=== PATIENT | female | born 1995 | race Hispanic/Latino ===

== ENCOUNTER 2018-07-27 07:30 | Inpatient (IN) | payer OTHER ==
[2018-07-27 08:11] VITALS: BMI 31.4
[2018-07-27] MEDS ORDERED: Ondansetron PF 4 MG/2 ML Vial IVP PRN (09:51)
[2018-07-27] MEDS ORDERED: Ibuprofen 800 MG TAB PO PRN (09:51)
[2018-07-27] MEDS ORDERED: Methylergonovine 0.2 MG/ML VIAL IM PRN (09:51)
[2018-07-27] MEDS ORDERED: Lidocaine 1% (PF) 30 ML VIAL SC PRN (09:51)
[2018-07-27] MEDS ORDERED: Promethazine HCl 25 MG/ML VIAL IM PRN (09:51)
[2018-07-27] MEDS ORDERED: Misoprostol 200 MCG TAB PR PRN (09:51)
[2018-07-27] MEDS ORDERED: HYDROcodone/Acetaminophen 5/325 mg Tablet PO PRN ×2 (09:51→18:55)
[2018-07-27] MEDS ORDERED: Carboprost 250 MCG/ML AMP IM PRN (09:51)
[2018-07-27 11:20] LABS: Hemoglobin 12.7 g/dL (12.0-16.0); Mean Corpuscular HGB CONC 31.2 g/dL (32.0-36.0); Mean Corpuscular Hemoglobin 28.3 pg (27.0-31.0); Mean Corpuscular Volume 90.4 fL (78.0-98.0); Mean Platelet Volume 7.4 fL (7.4-10.4); Platelet Count 318 thou/uL (130-400); RBC Distribution Width 12.6 % (11.5-14.5)
[2018-07-27 11:57] LABS: HBSAg Index 0.42 S/CO (0-0.99); Hep B Surf Ag Non-Reactive S/CO (NonReactive); Syphilis Antibody Nonreactive (Nonreactive); Syphilis Antibody Index 0.03 S/CO (<1.00 Non-Reactive)
--- NOTE | 2018-07-27 12:32 | PDOC.EVN ---
Event Note - Event Note Event Note: AROM with clear fluid. SVE 5/80/-1. Category I FHT. CTX every 2-3 minutes.
[2018-07-27] MEDS: NS / Oxytocin 40 units/1000ml 1,000 ML IV PRN ×2 (15:20→17:19)
[2018-07-27] MEDS ORDERED: Bisacodyl 10 MG SUPP PR PRN (18:55)
[2018-07-27] MEDS ORDERED: NS / Oxytocin 40 units/1000ml 1,000 ML IV SCH (18:55)
[2018-07-27] MEDS ORDERED: Milk Of Magnesia 30 ML UDCUP PO PRN (18:55)
[2018-07-27] MEDS ORDERED: Adacel (T-DAP) 0.5 ML SYRINGE IM ONE (18:55)
--- NOTE | 2018-07-27 19:17 | OP ---
DATE OF PROCEDURE: 07/27/2018 DATE OF DELIVERY: 07/27/2018. PREOPERATIVE DIAGNOSIS: Term intrauterine . POSTOPERATIVE DIAGNOSIS: Term intrauterine . PROCEDURE PERFORMED: Normal spontaneous vaginal delivery. ANESTHESIA: None. QUANTITATIVE BLOOD LOSS: 45 mL. BRIEF DELIVERY SUMMARY: This is a 23-year-old G3, now P3, who presented in active labor. She progressed well to complete and pushing. well-being throughout the labor course was reassuring. She delivered a live male infant head away. Mouth and nares were bulb suctioned at the perineum. There was no nuchal cord. Shoulders and body easily followed and the infant was placed on mother's abdomen. The umbilical cord was doubly clamped and cut and cord blood was collected and sent for analysis. Placenta delivered spontaneously and intact with a 3-vessel umbilical cord. Uterine fundus following evacuation of the placenta was firm. Cervix, vagina, and perineum were inspected for lacerations and there were none to be found. Mom and baby were left with the nurse in excellent condition attempting to breastfeed. Job ID: [id number]
[2018-07-28] MEDS: Ibuprofen 800 MG TAB PO SCH ×3 (00:20→13:35)
[2018-07-28] MEDS: Docusate Calcium (SURFAK) 240 MG CAP PO SCH ×2 (00:21→10:36)
--- NOTE | 2018-07-28 08:44 | PDOC.PP ---
Post Progress Note Post Day #: 1 Subjective: Doing well. well. No c/o. PO intake tolerated: yes Flatus: yes Ambulation: yes Vital Signs (12 hours) Temp Pulse Resp BP 07/28/18 04:15 98.0 F 77 18 109/60 07/28/18 00:13 98.4 F 73 18 109/57 L Weight Weight 166 lb - Physical Examination General: NAD Cardiovascular: no m/r/g, RRR Respiratory: clear to auscultation bilaterally, non-labored breathing Abdominal: + bowel sounds, lochia, no distention, appropriately TTP Result Diagrams: 07/27/18 11:06 Additional Labs: Post Labs Blood Type O POSITIVE 07/27/18 11:06 Hep Bs Antigen Non-Reactive S/CO (NonReactive) 07/27/18 11:06 (1) Vaginal delivery Code(s): O80 - ENCOUNTER FOR FULL-TERM UNCOMPLICATED DELIVERY Status: Acute - Assessment/Plan Routine PP care D/C this PM F/U in 6 weeks
[2018-07-28] MEDS: Ferrous Sulfate 325 MG TAB PO SCH ×2 (09:26→15:24)
[2018-07-28 11:31] VITALS: TEMP 97.9
[2018-07-28 12:09] VITALS: BP 103/55
== END 2018-07-28 18:04 | disposition home or self-care (01) | DRG 807 ==
LOC: L&D/OP 07:30 → L&D 08:27 → 3SW 18:51
PROVIDERS: ADMIT Family Medicine; ATTEND Family Medicine
PROC: 10E0XZZ Delivery of Products of Conception, External Approach (ICD-10-PCS; principal; 2018-07-27)
PROC: 10907ZC Drainage of Amniotic Fluid, Therapeutic from Products of Conception, Via Natural or Artificial Opening (ICD-10-PCS; 2018-07-27)
DX: O80 Encounter for full-term uncomplicated delivery (principal); Z37.0 Single live birth; Z3A.38 38 weeks gestation of pregnancy
CPT/HCPCS: 36415; 85027; 86780; 86850; 86900; 86901; 87340; 99285

== ENCOUNTER 2019-08-20 10:21 | Day surgery (SDC) | payer OTHER ==
[2019-08-20 11:06] VITALS: TEMP 98.6; BMI 28.9
[2019-08-20] MEDS ORDERED: hydrALAZINE 20 MG/ML VIAL SLOW IVP PRN (11:55)
--- NOTE | 2019-08-21 05:24 | PRG ---
DATE OF SERVICE: 08/20/2019 PRIMARY OB: Dr. David Croft. CHIEF COMPLAINT: Decreased movement. HISTORY OF PRESENT ILLNESS: The patient is a 24-year-old G4, P3 female with an intrauterine at 21 weeks gestation, presenting with decreased movement times a day. The patient's baby was recently diagnosed with an unknown incompletely described anomaly of the brain on . The patient came out of concern. The patient denies any other known complications. Nursing staff at the time of presentation was unable to obtain heart tones and asked that I come in with ultrasound for confirmation of viable fetus. At time of my evaluation at bedside with a bedside ultrasound, IUFD was confirmed. Understandably at this time, the family became overwhelmed with grief, and we allowed the patient and her time alone. Shortly thereafter, a short discussion was had about the options including induction of labor today or discharge home and follow up with her primary provider, this is the option she preferred. PHYSICAL EXAMINATION: VITAL SIGNS: Today, blood pressure of 121/81, heart rate of 96, respiratory rate of 18, and temperature of 98.6. GENERAL: She appears to be in no acute distress. She is appropriately grieving. She is otherwise alert, oriented, cooperative, and pleasant to interact with. HEAD: Normocephalic and atraumatic. RESPIRATIONS: The patient is breathing rhythmically clear and without any audible sounds. The patient was discharged home with a diagnosis of IUFD. Her presentation and diagnosis have been relayed to her primary OB, Dr. David Croft, who will be contacting Ms. Little by phone. Job ID: [id number]
[2019-08-21 17:08] LABS: SARS-CoV-2 MS2 Positive; SARS-CoV-2 N Gene Negative; SARS-CoV-2 S Gene Negative; SARS-CoV-2 orf1ab Negative
== END 2019-08-20 12:00 | disposition home health service (06) ==
LOC: L&D/OP 10:21
PROVIDERS: ATTEND Obstetrics & Gynecology
DX: O36.4XX0 Maternal care for intrauterine death, not applicable or unspecified (principal); Z3A.21 21 weeks gestation of pregnancy
CPT/HCPCS: 87635; U0003

== ENCOUNTER 2019-08-21 08:36 | Inpatient (IN) | payer OTHER ==
[2019-08-21] MEDS ORDERED: Ondansetron PF 4 MG/2 ML Vial IVP PRN ×2 (09:01→21:55)
[2019-08-21] MEDS ORDERED: Acetaminophen 500 MG TAB PO PRN (09:01)
[2019-08-21] MEDS ORDERED: hydrALAZINE 20 MG/ML VIAL SLOW IVP PRN ×2 (09:01→21:55)
[2019-08-21] MEDS ORDERED: Ibuprofen 800 MG TAB PO PRN (09:01)
[2019-08-21] MEDS ORDERED: HYDROcodone/Acetaminophen 5/325 mg Tablet PO PRN ×2 (09:01)
[2019-08-21] MEDS ORDERED: NS / Oxytocin 40 units/1000ml 1,000 ML IV PRN (09:01)
[2019-08-21] MEDS ORDERED: Lidocaine 1% (PF) 30 ML VIAL SC PRN (09:01)
[2019-08-21] MEDS ORDERED: Promethazine HCl 25 MG/ML VIAL IM PRN ×2 (09:01→21:55)
[2019-08-21] MEDS ORDERED: Butorphanol Tartrate 1 MG/ML VIAL SLOW IVP PRN (09:01)
[2019-08-21 09:02] VITALS: BMI 28.7
--- NOTE | 2019-08-21 09:07 | PDOC.LDHP ---
Labor and Delivery H&P Chief complaint: decreased movement HPI: Pt presented with decreased FM yesterday at approx 21 weeks GA with IUFD dx w US. Fetus with noted intracranial anomalies suspected on anatomy US last week and saw MFM on . Current gestational age (weeks): 21 Due date: 12/31/19 Grav: 4 Para: 3 Current complications: other ( intracranial abnormalities) Current medications: pre- vitamins Previous surgical history: none Allergies/Adverse Reactions: Allergies Allergy/AdvReac Type Severity Reaction Status Date / Time No Known Allergies Allergy Verified 08/21/19 08:57 Social history: none - Physical Exam Vital signs reviewed and normal: yes General: NAD Heart: RRR - OB Labs Blood type: O RH: positive Antibody Screen: negative HIV: negative RPR: negative HEPSAg: negative - Assessment L&D Assessment: medically indicated induction (for IUFD @ 21 weeks) - Plan Plan: admit to L&D, informed consent obtained, anesthesia consult for pain management -: A/P: Plan for cytotec IOL for 21 week IUFD reviewed with the patient, known anomaly. Epidural at patient request.
[2019-08-21] MEDS ORDERED: Misoprostol 100 MCG TAB VAG SCH (09:15)
[2019-08-21] MEDS ORDERED: Misoprostol 200 MCG TAB ONE ×3 (09:16→10:59)
[2019-08-21 09:19] LABS: Hemoglobin 12.7 g/dL (12.0-16.0); Mean Corpuscular Hemoglobin 29.5 pg (27.0-31.0); Mean Corpuscular Volume 92.3 fL (78.0-98.0); Mean Platelet Volume 7.8 fL (7.4-10.4); Platelet Count 267 thou/uL (130-400); Red Blood Cell (RBC) Count 4.29 mill/uL (4.20-5.40); White Blood Cell (WBC) Count 8.7 thou/uL (4.8-10.8)
[2019-08-21] MEDS ORDERED: Misoprostol 200 MCG TAB VAG SCH (10:45)
[2019-08-21] MEDS: Misoprostol 200 MCG TAB PO SCH ×3 (12:45→18:26)
--- NOTE | 2019-08-21 17:07 | PDOC.LDPN ---
Labor & Delivery Progress Note - Subjective Subjective: painful contractions - Objective General: NAD Dilation: 2 Station: -3 - Assessment (1) 21 weeks gestation of Code(s): Z3A.21 - 21 WEEKS GESTATION OF Current Visit: Yes Status : Acute (2) demise Code(s): ORE5340 - Current Visit: Yes Status: Acute Plan: continue plan of care -: Called for delivery for IUFD, on exam intact, SVE 250/-3. Suspected part was cytotec. Findings reviewed w patient.
[2019-08-21] MEDS ORDERED: Misoprostol 200 MCG TAB VAG PRN (21:55)
[2019-08-21] MEDS ORDERED: Benzocaine-Menthol 82.5 ML CAN TOP PRN (21:55)
[2019-08-21] MEDS ORDERED: Milk Of Magnesia 30 ML UDCUP PO PRN (21:55)
[2019-08-21] MEDS ORDERED: diphenhydrAMINE 25 MG CAP PO PRN (21:55)
[2019-08-21] MEDS ORDERED: Bisacodyl 10 MG SUPP PR PRN (21:55)
[2019-08-21] MEDS ORDERED: Preparation H Ointment 28 GM TUBE PR PRN (21:55)
[2019-08-21] MEDS ORDERED: Methylergonovine 0.2 MG/ML VIAL IM PRN (21:55)
--- NOTE | 2019-08-21 21:58 | PDOC.OPDEL ---
OB Operative/Delivery Note Delivery Dr/Surgeon: Eva Pre-Delivery Diagnosis: medically indicated induction Procedure/Post Delivery Dx: spontaneous vaginal delivery Weeks gestation: 20 Anesthesia: none - Findings A Sex: male Weight: 1 lb 1.461 oz - 1 min: 0 - 5 min: 0 - Additional Findings/Plan Placenta delivered: spontaneous Repaired Obstetrical Laceration: none Estimated blood loss: 20 Post delivery plan: routine recovery
[2019-08-21] MEDS ORDERED: NS / Oxytocin 40 units/1000ml 1,000 ML IV SCH (22:00)
[2019-08-21] MEDS ORDERED: Ibuprofen 800 MG TAB PO SCH (22:00)
[2019-08-22] MEDS: Misoprostol 200 MCG TAB PO SCH (02:02)
[2019-08-22] MEDS ORDERED: Ferrous Sulfate 325 MG TAB PO SCH (08:00)
[2019-08-22] MEDS ORDERED: Measles/Mumps/Rubella 10 MCG/0.5 ML VIAL SC ONE (09:00)
[2019-08-22] MEDS ORDERED: Varicella virus, LIVE 0.5 ML VIAL SC ONE (09:00)
[2019-08-22] MEDS ORDERED: Docusate Calcium (SURFAK) 240 MG CAP PO SCH (09:00)
[2019-08-22] MEDS ORDERED: Adacel (T-DAP) 0.5 ML SYRINGE IM ONE (09:00)
== END 2019-08-22 07:15 | disposition home or self-care (01) | DRG 807 ==
LOC: L&D/OP 08:36 → L&D 17:44
PROVIDERS: ADMIT Obstetrics & Gynecology; ATTEND Obstetrics & Gynecology
PROC: 10E0XZZ Delivery of Products of Conception, External Approach (ICD-10-PCS; principal; 2019-08-21)
PROC: 3E0P7VZ Introduction of Hormone into Female Reproductive, Via Natural or Artificial Opening (ICD-10-PCS; 2019-08-21)
DX: O36.4XX0 Maternal care for intrauterine death, not applicable or unspecified (principal); Z37.1 Single stillbirth; O35.8XX0 Maternal care for other (suspected) fetal abnormality and damage, not applicable or unspecified; Z3A.21 21 weeks gestation of pregnancy
CPT/HCPCS: 36415; 76815; 85027; 86850; 86900; 86901; 87635; 88305; 99283; U0003